=== PATIENT | male | born 1940 | race Caucasian/White ===

== ENCOUNTER 2024-07-22 21:30 | Inpatient (IN) | payer MEDICARE ==
[~2024-07-22] VITALS: Ht 170.2 cm; Wt 74.7 kg
[2024-07-23] VITALS (91 sets, daily range): BP systolic 103–125; BP diastolic 59–82; PULSE 64–73; TEMP 97.1–98.6; O2SAT 94–100
--- NOTE | 2024-07-23 00:55 | NUR ---
RECEIVED REPORT FROM [facility] RN. RN REPORTS PATIENT IS CONFUSED. CAME FROM [facility] DUE TO AMS AND CELLULITIS. PATIENT ARRIVED TO UNIT AROUND 0000 BY EMS. HAS 20G IV TO RIGHT WRIST, REID CATHETER IN PLACE. PATIENT ORIENTED TO ROOM, CALL LIGHT WITHIN REACH. NO ACUTE EVENTS.
[2024-07-23] MEDS ORDERED: Ondansetron 4 MG/2 ML VIAL IV PRN (01:00)
[2024-07-23] MEDS ORDERED: Acetaminophen 500 MG TAB PO PRN (01:00)
[2024-07-23] MEDS ORDERED: Polyethylene Glycol 3350 17 GM PDS PO PRN (01:00)
[2024-07-23] MEDS ORDERED: Insulin Lispro (HumaLOG) SQ SCH ×3 (01:07→12:00)
[2024-07-23] MEDS ORDERED: Glucagon 1 MG VIAL IM PRN (01:15)
[2024-07-23] MEDS ORDERED: Dextrose 50% Water 25 GM/50 ML SYRINGE IV PRN (01:15)
[2024-07-23] MEDS ORDERED: Dextrose (Glucose) 15 GM (4 x 3.75 GM) Chewable TABLET PACK PO PRN (01:15)
[2024-07-23] MEDS ORDERED: TYLENOL 325MG325 MG PO (01:34)
[2024-07-23] MEDS ORDERED: LIPITOR 40MG TA40 MG PO (01:35)
[2024-07-23] MEDS ORDERED: ELIQUIS 2.5 PO (01:35)
[2024-07-23] MEDS ORDERED: SINEMET 25/101 UDTAB PO (01:37)
[2024-07-23] MEDS ORDERED: LASIX 20MG TABL20 MG PO (01:38)
[2024-07-23] MEDS ORDERED: GLUCOPHAGE1000 MG PO (01:39)
[2024-07-23] MEDS ORDERED: MAG-OX 400400 MG/TAB PO (01:39)
[2024-07-23] MEDS ORDERED: MIRALAX PA17 GM/Dose PO (01:40)
[2024-07-23] MEDS ORDERED: REQUIP4 MG PO (01:41)
[2024-07-23] MEDS ORDERED: ZOLOFT 50MG50 MG PO (01:42)
[2024-07-23] MEDS ORDERED: SILVADENE CREAM1 TU TP (01:43)
[2024-07-23 01:54] LABS: BASO % 0.3 % (0.0-2.0); EOS # 0.2 K/mm3 (0.0-0.7); GRAN # 9.1 K/mm3 (1.4-6.5); GRAN % 80.3 % (42.2-75.2); HEMOGLOBIN 10.8 g/dl (13.5-18.0); LYMPH # 1.2 K/mm3 (1.2-3.4); LYMPH % 10.8 % (20.0-51.0); MEAN CELL VOLUME 81 fl (80.0-100.0); MEAN CORPUSCULAR HEMOGLOBIN 26 pg (27-31); MEAN CORPUSCULAR HGB CONC 32 g/dl (33.0-37.0); MEAN PLATELET VOLUME 10.1 fl (7.4-10.4); MONO # 0.7 K/mm3 (0.1-0.6); PLATELET COUNT 203 K/mm3 (130-400); REDCELL DISTRIBUTION WIDTH-CV 15.7 % (11.5-14.5)
[2024-07-23 02:09] LABS: ALBUMIN 3.2 g/dL (3.4-4.8); ALKALINE PHOSPHATASE 132 U/L (40-150); ANION GAP 15 mmol/L (7-16); AST,SGOT 10 U/L (5-34); BLOOD UREA NITROGEN 95 mg/dL (8-26); C-REACTIVE PROTEIN 3.82 mg/dL (0.00-0.50); CHLORIDE 117 mEq/L (98-107); CREATININE, serum 3.24 mg/dL (0.72-1.25); GLUCOSE 197 mg/dL (70-99); POTASSIUM 4.3 mEq/L (3.5-4.5); SODIUM 152 mEq/L (136-145); TOTAL PROTEIN 6.5 g/dl (6.2-8.1)
[2024-07-23 02:12] LABS: ALANINE AMINOTRANSFERASE < 6 U/L (0-55)
[2024-07-23] MEDS ORDERED: D5W 1,000 ML IV SCH (02:15)
[2024-07-23] MEDS ORDERED: Cefepime 1 G in Water For Injection,Sterile 10 ML IV SCH (03:30)
--- NOTE | 2024-07-23 07:01 | NUR ---
84 yo male admitted for further care and management of sepsis likely from a skin/soft tissue source. ht 170.2 cm wt 71.8 kg SCr 3.24 with estimated CrCl 14 ml/min half life 53.3 hours Plan: Patient is unlikely to follow population based kinetics secondary to YUMI on CKD. Patient received vancomycin 500 mg x1 prior to transfer; will give a supplemental loading dose of vancomycin 1000 mg x1 for a total loading dose of 1500 mg (20.9 mg/kg); will follow with a maintenance regimen of vancomycin 750 mg q48h to target a goal trough of 10-15 mcg/ml. Will follow patient's renal function, micro data, and vancomycin levels as indicated to assess for any necessary changes to regimen. Thank you for this dosing consult.
[2024-07-23] MEDS ORDERED: Apixaban 2.5 MG TABLET PO SCH (09:00)
[2024-07-23] MEDS ORDERED: Sertraline 50 MG TAB PO SCH (09:00)
[2024-07-23] MEDS ORDERED: rOPINIRole 1 MG TAB PO SCH (09:00)
--- NOTE | 2024-07-23 09:14 | NUR ---
PT IS LYING IN THE BED, HE IS A LITTLE RESTLESS, HE DID ASK FOR SOME LIGHT. WE OPENED THE BLINDS FOR HIM. HE IS ABLE TO TELL ME HIS NAME, AND YEAR AND PRESIDENT. HE WAS UNSURE OF HIS LOCATION. HE IS ON ROOM AIR, HE HAS A REID CATHETER, HE DOES NO COMPLAIN OF ANY PAIN. HE DOES HAVE SOME SHAKINESS FROM HIS PARKINSONS.
--- NOTE | 2024-07-23 10:54 | NUR ---
SW met with patient to attempt to complete intake. However patient unable to answer questions. Nurse provided number for [facility] Natividad Linda [phone], SW informed by Natividad that DPOA/HC is patient's daughter Connie Fay [phone]. SW informed that patient was previously at half-way, but plan was to return him to his home in [facility]. Patient utilizes a walker and a wheelchair for mobility, PCP is Dr. Jacobs, and pharmacy is [facility]. Discharge plan is unknown at this time and TBD. CLIFFORD will continue to follow. Discharge plan: TBD
[2024-07-23] MEDS ORDERED: Insulin Glargine-ygfn (Lantus) SQ SCH (11:13)
--- NOTE | 2024-07-23 11:55 | NUR ---
Data: Spiritual care visit attempted during [employer] Reporter rounds. Patient was sleeping. Assessment: None at this time. Plan of Care: Chaplains will remain available as needed/requested while Patient is admitted to this hospital.
[2024-07-23 16:39] LABS: CALCIUM 8.3 mg/dL (8.4-10.2); CREATININE, serum 2.36 mg/dL (0.72-1.25); POTASSIUM 4.2 mEq/L (3.5-4.5)
[2024-07-23] MEDS ORDERED: 1/2 NS 1,000 ML IV SCH (17:00)
--- NOTE | 2024-07-23 19:06 | NUR ---
PT IN CONTACT ISOLATION FOR MRSA & STAPH. SEIZURE PRECAUTIONS DISCONTINUED. PT HAS PARKINSONS. THE "SEIZURE" ACTIVITY EMS REPORTED WAS PT JERKING DUE TO PARKINSONS. PT IS VERBAL, BUT HARD TO UNDERSTAND DUE TO NOT HAVING ANY TEETH.
--- NOTE | 2024-07-23 20:00 | NUR ---
PT HAS HEEL LIFT BOOTS BILATERALY. CELLULITIS TO BLE IMPROVED. PT C/O GENERALIZED, MODERATE PAIN. TYLENOL GIVEN. STOOL FELT IN RECTAL VAULT. SUPPOSITORY GIVEN. RESPIRATIONS EVEN AND UNLABORED. NO SIGN OF DISTRESS AT THIS TIME. CONTINUE WITH PLAN OF CARE.
[2024-07-24] VITALS (104 sets, daily range): BP systolic 99–144; BP diastolic 49–63; PULSE 54–62; TEMP 97.4–98.1; O2SAT 71–100
[2024-07-24 06:12] LABS: BASO % 0.2 % (0.0-2.0); EOS # 0.6 K/mm3 (0.0-0.7); EOS % 6.8 % (0.0-4.0); GRAN # 6.4 K/mm3 (1.4-6.5); GRAN % 73.7 % (42.2-75.2); HEMOGLOBIN 10.4 g/dl (13.5-18.0); LYMPH # 1.1 K/mm3 (1.2-3.4); MEAN CELL VOLUME 83 fl (80.0-100.0); MEAN CORPUSCULAR HEMOGLOBIN 26 pg (27-31); MEAN CORPUSCULAR HGB CONC 31 g/dl (33.0-37.0); MEAN PLATELET VOLUME 10.9 fl (7.4-10.4); MONO # 0.5 K/mm3 (0.1-0.6); MONO % 5.8 % (1.7-9.3); PLATELET COUNT 149 K/mm3 (130-400); RED BLOOD COUNT 4.06 M/mm3 (4.20-5.60); REDCELL DISTRIBUTION WIDTH-CV 15.6 % (11.5-14.5)
[2024-07-24 06:14] LABS: HEMATOCRIT 33.7 % (42.0-52.0)
[2024-07-24 06:27] LABS: CALCIUM 8.1 mg/dL (8.4-10.2); CREATININE, serum 1.87 mg/dL (0.72-1.25); POTASSIUM 4.3 mEq/L (3.5-4.5)
--- NOTE | 2024-07-24 07:00 | NUR ---
REPORT RECEIVED FROM LATRICE CURRY. PT RESTING IN BED, VSS ON ROOM AIR. REID CATHETER IN PLACE TO DEPENDENT DRAINAGE. FLUIDS INFUSING ORDERED TO PERIPHERAL IV IN R WRIST. PT IS SLEEPING AT THIS TIME. CALL LIGHT IN REACH AND BED ALARM IN PLACE FOR PT SAFETY.
--- NOTE | 2024-07-24 15:45 | NUR ---
JONO ALFREDO FROM ICU. PATIENT IS SLEEPING. EASILUY AROUSED. CALL LIGHT WITHIN REACH. FALL PRECAUTIONS IN PLACE. STEPHANIE BOOTS ON BOTH LOWER EXTREMITIES. ULCERS TO BOTH LOWER EXTREMITIES.
--- NOTE | 2024-07-24 22:45 | NUR ---
Skin Assessment Sacral/ coccyx: Reddened- blanchable, intact Heels/ feet: Reddened- ramses boots, blanchable BUE: scattered bruising BLE: Wounds- scattered wounds from cellulitis L hip: bruise- intact R wrist: skin tear- dressing L posterior thigh: Stage 2 ulcer, open to air
--- NOTE | 2024-07-24 22:45 | NUR ---
Patient resting in bed with eyes closed. Easily aroused upon entering. Denies any pain at this time. Needs met. Assessment complete. IV in right wrist infusing without complications. Cristine boots in place. Snack provided. Call light and personal items in reach. Bed in low position and bed alarm on.
[2024-07-25] VITALS (7 sets, daily range): BP systolic 107–129; BP diastolic 49–70; PULSE 57–69; TEMP 97.3–98.8
[2024-07-25 06:58] LABS: BASO % 0.4 % (0.0-2.0); EOS # 0.6 K/mm3 (0.0-0.7); GRAN # 5.4 K/mm3 (1.4-6.5); GRAN % 71.3 % (42.2-75.2); HEMOGLOBIN 10.3 g/dl (13.5-18.0); LYMPH # 1.1 K/mm3 (1.2-3.4); MEAN CELL VOLUME 83 fl (80.0-100.0); MEAN CORPUSCULAR HEMOGLOBIN 26 pg (27-31); MEAN CORPUSCULAR HGB CONC 31 g/dl (33.0-37.0); MEAN PLATELET VOLUME 10.8 fl (7.4-10.4); MONO # 0.4 K/mm3 (0.1-0.6); MONO % 5.6 % (1.7-9.3); PLATELET COUNT 149 K/mm3 (130-400); REDCELL DISTRIBUTION WIDTH-CV 15.2 % (11.5-14.5)
[2024-07-25 07:00] LABS: HEMATOCRIT 33.1 % (42.0-52.0)
[2024-07-25 07:14] LABS: CREATININE, serum 1.58 mg/dL (0.72-1.25); POTASSIUM 4.6 mEq/L (3.5-4.5)
--- NOTE | 2024-07-25 10:35 | NUR ---
PATIENT ALERT AND ORIENTED TO SELF. PATIENT WITH INTERMITTENT CONFUSION. IV TO RIGHT WRIST WITH 1/2 NS RUNNING AT 60ML/HOUR. PATIENT ON RA. REID TO DD WITH CLOUDY, YELLOW OUTPUT. SEE SKIN ASSESSMENT. PATIENT DOES NOT APPEAR TO BE IN ANY PAIN. PATIENT LYING IN BED, WAITING ON BREAKFAST. NO FURTHER NEEDS. CALL LIGHT IN REACH. BED ALARM ON.
[2024-07-25] MEDS ORDERED: SYMMETREL100 M1 PO (10:52)
--- NOTE | 2024-07-25 11:01 | NUR ---
SW met with patient and daughter to review Medicare IM form for pending discharge tomorrow. Patient sleeping, daughter voiced understanding of form and is in agreement for patient to return to SNF. Form signed by daughter, original on chart and copy to daughter.
--- NOTE | 2024-07-25 11:29 | NUR ---
SW sent clinical updates to [facility] for probable discharge tomorrow. Discharge plan: SNF
--- NOTE | 2024-07-25 15:35 | NUR ---
agricultural service worker attended interdisciplinary clinical rounding with Dr. Murphy. Patient may be ready to discharge back to [facility] tomorrow. CLIFFORD contacted [facility] to notify them they were looking at discharge tomorrow. CLIFFORD Boo sent clinical updates to [facility]. Discharge plan: [facility]
--- NOTE | 2024-07-25 20:15 | NUR ---
Initial shift assessment done- alert/oriented x2, speech at times hard to understand, cooperative, wants to just sleep, repositioned, Munoz with cloudy yellow urine, IV fluids of 1/2 NS at 60cc/hr, did take meds crushed with pudding, padded boots on,
[2024-07-26 03:51] VITALS: BP 130/67; PULSE 60; TEMP 98.2
--- NOTE | 2024-07-26 06:03 | NUR ---
Did have quiet night/resting now-- repositioned, requesting the bedpan for a bowel movement at this time--
[2024-07-26 07:11] LABS: HEMOGLOBIN 10.4 g/dl (13.5-18.0); MEAN CELL VOLUME 83 fl (80.0-100.0); MEAN CORPUSCULAR HEMOGLOBIN 25 pg (27-31); MEAN CORPUSCULAR HGB CONC 31 g/dl (33.0-37.0); MEAN PLATELET VOLUME 10.9 fl (7.4-10.4); PLATELET COUNT 115 K/mm3 (130-400); RED BLOOD COUNT 4.09 M/mm3 (4.20-5.60); REDCELL DISTRIBUTION WIDTH-CV 15.2 % (11.5-14.5)
[2024-07-26 07:12] LABS: HEMATOCRIT 34.1 % (42.0-52.0)
[2024-07-26 07:23] VITALS: BP 130/53; PULSE 62; TEMP 97.8
[2024-07-26 07:30] LABS: CALCIUM 8.3 mg/dL (8.4-10.2); CREATININE, serum 1.38 mg/dL (0.72-1.25); POTASSIUM 4.7 mEq/L (3.5-4.5)
[2024-07-26 07:32] LABS: BAND 3 % (0-10); EOSINOPHIL 4 % (0-4); LYMPHOCYTE 13 % (20.0-51.0); NEUTROPHILS 73 % (42.0-75.2); OVALOCYTES 1+; PLATELET ESTIMATE NORMAL (NORMAL)
[2024-07-26] MEDS ORDERED: DOXYCYCLINE HY100 MG PO (08:48)
[2024-07-26] MEDS ORDERED: LANTUS100 U/ML SQ (08:54)
[2024-07-26] MEDS ORDERED: HUMALOG100 U/ML SQ (08:59)
[2024-07-26 11:10] VITALS: BP 117/47; PULSE 73; TEMP 98.3
--- NOTE | 2024-07-26 13:00 | NUR ---
PATIENT IV REMOVED AND DRESSED FOR DISCHARGE.
--- NOTE | 2024-07-26 13:12 | NUR ---
maintenance worker swimming pool attended interdisciplinary clinical rounding with Dr. Dickens. Patient is medically ready for discharge. CLIFFORD contacted [facility] whom expressed they did not receive the updates yesterday. CLIFFORD was notified their email changed from [email or web address] to [email or web address]. CLIFFORD faxed and secure emailed the entire referral and CLIFFORD Ema also resent the packet from yesterday. CLIFFORD followed up with [facility] whom expressed they were still reviewing and would get back with the social media analyst. CLIFFORD was notified by [facility] they had questions about patient's medications and if he would need IV antibiotics. CLIFFORD confirmed with the PA patient will have last dose of IV antibiotic today at the hospital than transitioned to oral for discharge to the nursing facility. CLIFFORD notified [facility] of this information and explained patient will be on doxycycline and insulin as his new medications. [facility] expressed the daughter, Connie, had mentioned concerns about patient discharging to them today because patient seemed confused. CLIFFORD contacted Connie and discussed patient being medically ready for discharge. Connie stated she was okay with patient discharging as long as the doctor felt he was ready. Connie also explained she feels [facility] will take good care of him and he is across the street from the [facility] if he were to start to decline again. CLIFFORD offered for Connie to speak with the doctor but Connie stated she was okay as long as there were no major changes over night. CLIFFORD discussed the antibiotic patient will discharge on and the insulin being added to his list of medications but otherwise no changes. Connie had no further questions or concerns at this time. CLIFFORD notified [facility] patient's daughter is okay with him returning to their facility today. [facility] said they could berry picker patient in the next hour or two. CLIFFORD notified patient's nurse and provided the report number P# [phone]. CLIFFORD faxed and secure emailed discharge orders to [facility]. Discharge plan: [facility] - SNF
--- NOTE | 2024-07-26 15:00 | NUR ---
PATIENT WAS TRANSPORTED OUT OF UNIT TO [facility] BY THEIR STAFF.
--- NOTE | 2024-07-26 15:27 | NUR ---
PATIENT REPORT CALLED TO NURSE RECEIVING PATIENT AT [facility].
== END 2024-07-26 15:05 | disposition home or self-care (01) | DRG 871 ==
LOC: ICU 21:30 → IMCU 07-23 00:18 → MEDICAL 07-24 15:54
PROVIDERS: Internal Medicine; ADMIT Internal Medicine
DX: A41.9 Sepsis, unspecified organism (principal); G93.41 Metabolic encephalopathy; E87.20 Acidosis, unspecified; N17.9 Acute kidney failure, unspecified; L03.116 Cellulitis of left lower limb; E87.0 Hyperosmolality and hypernatremia; E44.0 Moderate protein-calorie malnutrition; R65.20 Severe sepsis without septic shock; E11.22 Type 2 diabetes mellitus with diabetic chronic kidney disease; N18.30 Chronic kidney disease, stage 3 unspecified; E87.5 Hyperkalemia; M48.8X2 Other specified spondylopathies, cervical region; E86.0 Dehydration; E86.1 Hypovolemia; R13.10 Dysphagia, unspecified; G20.A1 Parkinson's disease without dyskinesia, without mention of fluctuations; J44.9 Chronic obstructive pulmonary disease, unspecified; E78.5 Hyperlipidemia, unspecified; F02.80 Dementia in other diseases classified elsewhere, unspecified severity, without behavioral disturbance, psychotic disturbance, mood disturbance, and anxiety; I12.9 Hypertensive chronic kidney disease with stage 1 through stage 4 chronic kidney disease, or unspecified chronic kidney disease; Z88.0 Allergy status to penicillin; Z79.01 Long term (current) use of anticoagulants; Z79.84 Long term (current) use of oral hypoglycemic drugs; Z79.899 Other long term (current) drug therapy; Z23 Encounter for immunization; Z68.24 Body mass index [BMI] 24.0-24.9, adult
CPT/HCPCS: J0692; J1815; J3370; J7050; J7070